=== PATIENT | female | born 1990 | race African-American/Black ===

== ENCOUNTER 2016-11-26 13:01 | Emergency (ER) | payer OTHER ==
[~2016-11-26] VITALS: Ht 149.9 cm; Wt 54.0 kg
[~2016-11-26 13:01] MED LIST: ALTATAB PO
[2016-11-26 13:02] VITALS: BP 128/70; PULSE 89; RESP 14; TEMP 98; O2SAT 100
--- NOTE | 2016-11-26 13:26 | PD ---
HPI Chief Complaint: Related Problem Time Seen by Provider: 13:25 Travel History International Travel<30 days: No Contact w/Intl Traveler<30days: No Traveled to known affect area: No History of Present Illness HPI 26-year-old female presents to the emergency Department with complaint of vaginal spotting for the last 3-4 days. States she thinks she is 4 weeks , but her last menstrual period was September 26. Reports mild abdominal cramping on and off. Denies abnormal vaginal discharge, odor, itch. Denies dysuria. Denies Fever, vomiting. Has no other medical complaints. Allergies to morphine. No other modifying factors or associated signs and symptoms. PFSH Past Medical History ?: LMP: 10/26/16 : 0 Para: 0 Miscarriage: 0 : 0 Past Surgical History Tonsillectomy: Yes Other Surgery: Yes (CYST REMOVED FROM LEFT BREAST) Social History Alcohol Use: Yes (OCCASIONALLY) Tobacco Use: No Substance Use: No Allergies-Medications (Allergen,Severity, Reaction): Coded Allergies: Morphine (Verified Allergy, Severe, HIVES, 12/13/15) HIVES AND THROAT SWELLING Reported Meds & Prescriptions Reported Meds & Active Scripts Active Keflex (Cephalexin) 500 Mg Cap 500 Mg PO Q12H 5 Days Review of Systems Except as stated in HPI: all other systems reviewed are Neg Physical Exam Narrative GENERAL: Well-nourished, well-developed female patient, in no acute distress; afebrile, nontoxic-appearing SKIN: Warm and dry. HEAD: Atraumatic. Normocephalic. EYES: Pupils equal and round. No scleral icterus. No injection or drainage. ENT: Mucosa pink and moist. Airway patent. NECK: Trachea midline. CARDIOVASCULAR: Regular rate and rhythm. No murmur appreciated. RESPIRATORY: No accessory muscle use. Clear to auscultation. Breath sounds equal bilaterally. GASTROINTESTINAL: Abdomen soft, non-tender, nondistended. Hepatic and splenic margins not palpable. Bowel sounds are active 4 quadrants. BACK: No CVA tenderness. MUSCULOSKELETAL: No obvious deformities. No clubbing. No cyanosis. No edema. NEUROLOGICAL: Awake and alert. Oriented 3. No obvious cranial nerve deficits. Motor grossly within normal limits. Normal speech. PSYCHIATRIC: Appropriate mood and affect; insight and judgment normal. Data Data Last Documented VS Vital Signs Date Time Temp Pulse Resp B/P Pulse Ox O2 Delivery O2 Flow Rate FiO2 11/26/16 14:57 18 11/26/16 13:02 98.0 89 128/70 100 Orders Beta Hcg (Quant/Titer) (11/26/16 13:16) Urinalysis - C+S If Indicated (11/26/16 13:16) Ed Urine Pregnancytest Poc (11/26/16 13:16) Ed Poc Ultrasound (11/26/16 13:26) Us Pelvis (Ques Pr/Ect)W Trans (11/26/16 ) Urine Culture (11/26/16 13:23) Labs Laboratory Tests Test 11/26/16 13:23 Urine Color YELLOW Urine Turbidity HAZY Urine pH 6.0 Urine Specific [place] 1.026 Urine Protein 30 mg/dL Urine Glucose (UA) NEG mg/dL Urine Ketones NEG mg/dL Urine Occult Blood MOD Urine Nitrite NEG Urine Bilirubin NEG Urine Urobilinogen LESS THAN 2.0 MG/DL Urine Leukocyte Esterase MOD Urine RBC 25 /hpf Urine WBC 23 /hpf Urine Squamous Epithelial 22 /hpf Cells Urine Bacteria OCC /hpf Urine Mucus MOD /lpf Microscopic Urinalysis Comment CULTURE INDICATED Human Chorionic Gonadotropin, 30039 MIU/ML Quant MDM Medical Decision Making Medical Screen Exam Complete: Yes Emergency Medical Condition: Yes Medical Record Reviewed: Yes Differential Diagnosis Vaginal spotting, threatened miscarriage, miscarriage, ectopic Narrative Course 26-year-old female with vaginal spotting for the last 3-4 days. Last menstrual period September 26. Reports occasional abdominal cramping. Denies other vaginal symptoms. I discussed the patient with Dr. Talamantes, my attending physician, and she recommended hCG, urinalysis, bedside ultrasound. Urine positive. Point of care ultrasound performed by Dr. armenta and she recommended pelvic and transvaginal ultrasound to be ordered. Orders 100. 1430: Urinalysis with signs of infection. HCG 40,848. Patient will be prescribed Keflex for home. Pelvic and transvaginal Ultrasound concludes: Last 24 hours Impressions Pelvis Ultrasound 11/26/16 0000 Signed Impressions: Service Date/Time: Saturday, November 26, 2016 14:36 - CONCLUSION: 1. Suspected missed AB with a gestational sac in the endometrial cavity without cardiac activity. 2. Cystic areas in the left ovary. One of these is likely related to the corpus luteum. The cystic areas include a 3.3 cm simple cyst and a more complex ringlike mass measuring 1.8 cm. An ectopic is less likely given the IUP. The ringlike structure in the left adnexa can be followed with beta-hCG or ultrasound to ensure this resolves. Solo Caba MD Findings of the ultrasound report discussed and Patient provided a copy of the US report. Instructed patient to follow up with immigration lawyer. Keflex prescribed for home. Patient verbalizes understanding and agreement with treatment plan. Patient is medically cleared and stable for discharge. Discussed reasons to return to the emergency department. Instructed patient to follow up with primary care provider. Patient agrees with treatment plan. The patients vital signs are stable and the patient is stable for outpatient follow- up and treatment. Patient discharged home, stable and in no acute distress. Diagnosis Primary Impression: Miscarriage Additional Impression: UTI (urinary tract infection) Qualified Code: N39.0 - Urinary tract infection with hematuria, site unspecified Referrals: [facility] Associate Primary Care Physician Patient Instructions: General Instructions, Miscarriage (ED), Urinary Tract Infection in (ED) Additional Instructions: Take antibiotics as prescribed and complete full course Drink plenty of fluids Maintain good personal hygiene Follow-up with primary care provider Follow-up with immigration lawyer 2-3 days Return to the emergency department immediately with worsening of symptoms Med/Other Pt SpecificInfo: Prescription(s) given Scripts Cephalexin (Keflex)500 Mg Mrj625 Mg PO Q12H 5 Days Ref 0 Prov:Miladys Ruth 11/26/16 Disposition: 01 DISCHARGE HOME Condition: Stable Miladys Ruth Nov 26, 2016 13:26
[2016-11-26 13:46] LABS: BACTERIA, URINE OCC /hpf; BLOOD, URINE MOD (NEG); COMMENT (UR) CULTURE INDICATED; CULTURE IF INDICATED CULTURE INDICATED; GLUCOSE,URINE NEG (NEG); KETONE, URINE NEG (NEG); MUCUS URINE MOD /lpf (OCC); NITRITE,URINE NEG (NEG); SQUAMOUS EPITHELIAL CELL URINE 22 /hpf (0-5); URINE COLOR YELLOW (YELLW/STRAW)
[2016-11-26 14:20] LABS: BETA HCG QUANT 40848 MIU/ML (0-5)
[2016-11-26] MEDS ORDERED: CEPH-460 PO (15:36)
--- NOTE | 2016-11-26 15:46 | RADRPT ---
EXAM DATE/TIME: 11/26/2016 14:36 [facility] COMPARISON: No previous studies available for comparison. INDICATIONS : Vaginal bleeding. LAB(S): Beta-hC MEDICAL HISTORY : . SURGICAL HISTORY : Tonsillectomy. Left breast cyst. ENCOUNTER: Initial ACUITY: 3 days PAIN SCORE: 0/10 LOCATION: Bilateral pelvis MEASUREMENTS: RIGHT OVARY: 4.0 x 2.4 x 1.5 UTERUS: 11.5 x 7.8 x 6.6 cm ENDOMETRIAL STRIPE: 16 mm RIGHT OVARY: 4.0 x 1.5 x 2.4 cm. LEFT OVARY: 4.7 x 5.4 x 3.4 cm FREE FLUID: No CROWN RUMP LENGTH: 0.77 cm = 6 WKS 2 DAYS FHR: not visualized FINDINGS: UTERUS: There is gestational sac in the endometrial cavity measuring 3.8 x 2.2 x 1.4 cm. This corresponds to a gestational age of 7 weeks one day. An embryonic pole is seen measuring 0.77 cm correspond to gesta tional age of 6 weeks 2 days. cardiac activity is not seen. RIGHT OVARY: Ovary contains no mass or significant cystic lesion. LEFT OVARY: There are 2 cystic areas seen in the left ovary. The larger mass is a simple cyst measuring 3.3 cm gr eatest diameter. The smaller mass is seen as a ringlike structure with a peripheral hypoechoic area a nd central cystic area measuring 1.8 x 1.5 x 0.9 cm. MISCELLANEOUS: No free fluid. CONCLUSION: 1. Suspected missed AB with a gestational sac in the endometrial cavity without cardiac activit y. 2. Cystic areas in the left ovary. One of these is likely related to the corpus luteum. The cystic ar eas include a 3.3 cm simple cyst and a more complex ringlike mass measuring 1.8 cm. An ectopic pregna ncy is less likely given the IUP. The ringlike structure in the left adnexa can be followed with beta -hCG or ultrasound to ensure this resolves. Solo Caba MD on November 26, 2016 at 15:38 Board Certified Radiologist. This report was verified electronically.
== END 2016-11-26 16:04 | disposition home or self-care (01) ==
LOC: NEPD 13:01
DX: O03.9 Complete or unspecified spontaneous abortion without complication (principal); O23.41 Unspecified infection of urinary tract in pregnancy, first trimester; Z88.5 Allergy status to narcotic agent; Z79.899 Other long term (current) drug therapy; Z34.91 Encounter for supervision of normal pregnancy, unspecified, first trimester
CPT/HCPCS: 76700; 76817; 81001; 84702; 84703; 87086

== ENCOUNTER 2016-11-29 10:41 | Emergency (ER) | payer OTHER ==
[~2016-11-29] VITALS: Ht 149.9 cm; Wt 53.0 kg
[~2016-11-29 10:41] MED LIST changes: -ALTATAB PO; +CEPH-460 PO
[2016-11-29 10:42] VITALS: BP 135/69; PULSE 100; RESP 16; TEMP 98.2; O2SAT 98
--- NOTE | 2016-11-29 12:20 | PD ---
HPI Chief Complaint: Related Problem Time Seen by Provider: 12:10 Travel History International Travel<30 days: No Contact w/Intl Traveler<30days: No Traveled to known affect area: No History of Present Illness HPI 26-year-old last menstrual period September 26. She presents for reevaluation of vaginal bleeding. For the past 5 days she has been having light vaginal bleeding. She reports that she uses about 1 tampon a day. She was seen here for evaluation of this issue 3 days ago. The ultrasound revealed a suspected missed as well as a complex ringlike structure in the left adnexa. She was encouraged to follow-up with an integrated specialist but she was unable to today because she could not find one that is accepting new patients. She is returning today for repeat beta-hCG. She denies any abdominal pain. Denies passing any obvious products of conception. Denies fevers or chills, flank pain. Unknown Rh type. No other complaints. PFSH Past Medical History ?: : 0 Para: 0 Miscarriage: 0 : 0 Past Surgical History Tonsillectomy: Yes Other Surgery: Yes (CYST REMOVED FROM LEFT BREAST) Social History Alcohol Use: Yes (OCCASIONALLY) Tobacco Use: No Substance Use: No Allergies-Medications (Allergen,Severity, Reaction): Coded Allergies: Morphine (Verified Allergy, Severe, HIVES, 12/13/15) HIVES AND THROAT SWELLING Reported Meds & Prescriptions Reported Meds & Active Scripts Active Keflex (Cephalexin) 500 Mg Cap 500 Mg PO Q12H 5 Days Review of Systems Except as stated in HPI: all other systems reviewed are Neg Physical Exam Narrative GENERAL: Well-developed well-nourished female in no acute distress SKIN: Warm and dry. HEAD: Atraumatic. Normocephalic. EYES: Pupils equal and round. No scleral icterus. No injection or drainage. ENT: No nasal bleeding or discharge. Mucous membranes pink and moist. NECK: Trachea midline. No JVD. CARDIOVASCULAR: Regular rate and rhythm. No murmur appreciated. RESPIRATORY: No accessory muscle use. Clear to auscultation. Breath sounds equal bilaterally. GASTROINTESTINAL: Abdomen soft, non-tender, nondistended. Hepatic and splenic margins not palpable. Pelvic examination performed in the presence of a female nurse: The cervical os is essentially closed. There is a small amount of blood at the level of the cervical os. MUSCULOSKELETAL: No obvious deformities. No clubbing. No cyanosis. No edema. NEUROLOGICAL: Awake and alert. No obvious cranial nerve deficits. Motor grossly within normal limits. Normal speech. PSYCHIATRIC: Appropriate mood and affect; insight and judgment normal. Data Data Last Documented VS Vital Signs Date Time Temp Pulse Resp B/P Pulse Ox O2 Delivery O2 Flow Rate FiO2 11/29/16 10:42 98.2 100 16 135/69 98 Orders Beta Hcg (Quant/Titer) (11/29/16 12:17) Complete Rh (11/29/16 12:17) Us Pelvis (Ques Pr/Ect)W Trans (11/29/16 ) Complete Blood Count With Diff (11/29/16 14:13) Basic Metabolic Panel (Bmp) (11/29/16 14:13) Act Partial Throm Time (Ptt) (11/29/16 14:13) Prothrombin Time / Inr (Pt) (11/29/16 14:13) Labs Laboratory Tests Test 11/29/16 11/29/16 12:25 15:10 Human Chorionic Gonadotropin, 03357 MIU/ML Quant Blood Type O POSITIVE Rho(D) Type POSITIVE White Blood Count 6.8 TH/MM3 Red Blood Count 4.52 MIL/MM3 Hemoglobin 12.7 GM/DL Hematocrit 37.8 % Mean Corpuscular Volume 83.6 FL Mean Corpuscular Hemoglobin 28.2 PG Mean Corpuscular Hemoglobin 33.7 % Concent Red Cell Distribution Width 14.2 % Platelet Count 387 TH/MM3 Mean Platelet Volume 7.7 FL Neutrophils (%) (Auto) 40.4 % Lymphocytes (%) (Auto) 50.9 % Monocytes (%) (Auto) 6.4 % Eosinophils (%) (Auto) 1.7 % Basophils (%) (Auto) 0.6 % Neutrophils # (Auto) 2.7 TH/MM3 Lymphocytes # (Auto) 3.5 TH/MM3 Monocytes # (Auto) 0.4 TH/MM3 Eosinophils # (Auto) 0.1 TH/MM3 Basophils # (Auto) 0.0 TH/MM3 CBC Comment DIFF FINAL Differential Comment Prothrombin Time 10.4 SEC Prothromb Time International 0.9 RATIO Ratio Activated Partial 29.5 SEC Thromboplast Time Sodium Level 137 MEQ/L Potassium Level 3.7 MEQ/L Chloride Level 106 MEQ/L Carbon Dioxide Level 24.3 MEQ/L Anion Gap 7 MEQ/L Blood Urea Nitrogen 8 MG/DL Creatinine 0.58 MG/DL Estimat Glomerular Filtration 151 ML/MIN Rate Random Glucose 78 MG/DL Calcium Level 9.1 MG/DL [facility] Medical Decision Making Medical Screen Exam Complete: Yes Emergency Medical Condition: Yes Medical Record Reviewed: Yes Differential Diagnosis Missed , incomplete , complete , ectopic , intrauterine Narrative Course This is a 26-year-old female whose last menstrual period was September 26. She has been having light vaginal bleeding for the past 5 days. An ultrasound performed 3 days ago revealed a likely missed as well as a complex ringlike structure in the left adnexa. She has had persistent light vaginal bleeding since then which prompted reevaluation. She was unable to establish care with an GRADUATE STUDENT INSTRUCTOR. She is having no abdominal pain in her abdomen is soft and nontender. She has an unknown Rh type and therefore Rh has been ordered. Repeat quantitative beta hCG has been ordered. Because of the complex ringlike structure in left adnexa, repeat ultrasound has been ordered. The patient's ultrasound does continue to reveal any intrauterine demise. The beta-hCG is slightly higher than when she was here 3 days ago, today it is 83,000. I did discuss with the on-call integrated specialist Dr. Lacy as well as the on-call GRADUATE STUDENT INSTRUCTOR doctor Damon who feels that likely this patient does not have a concurrent ectopic . She would be happy to follow-up with the patient next few days in his office if the patient does not pass the products of conception. Discussed with the patient is agreeable with this plan. Diagnosis Primary Impression: Miscarriage Referrals: Jeanette Mccain MD Additional Instructions: As discussed, follow-up with GRADUATE STUDENT INSTRUCTOR doctor Jose in his office in the next 5 days, call to make an appointment. Return for any emergent medical conditions. Med/Other Pt SpecificInfo: No Change to Meds Disposition: 01 DISCHARGE HOME Condition: Stable Stephen Farias Nov 29, 2016 12:20
[2016-11-29 13:27] LABS: BETA HCG QUANT 43645 MIU/ML (0-5)
--- NOTE | 2016-11-29 15:08 | RADRPT ---
EXAM DATE/TIME: 11/29/2016 14:05 [facility] COMPARISON: No previous studies available for comparison. INDICATIONS : Pelvic bleeding. LAB(S): Beta-hC,645 MEDICAL HISTORY : . SURGICAL HISTORY : Tonsillectomy. Left ring finger surgery. Left breast cyst removal. ENCOUNTER: Subsequent ACUITY: 4-6 days PAIN SCORE: 0/10 LOCATION: Bilateral pelvis MEASUREMENTS: UTERUS: 11.4 x 7.6 x 5.3 cm ENDOMETRIAL STRIPE: >20 mm RIGHT OVARY: 4.3 x 2.0 x 1.5 cm LEFT OVARY: 3.7 x 4.1 x 2.3 cm FREE FLUID: No CROWN RUMP LENGTH: 1.2 cm = 7 WKS 3 DAYS FHR: Nonvisualized BPM FINDINGS: UTERUS: An intrauterine gestation is identified with age estimated at 7 weeks, 2-3 days. No cardiac act ivity is identified. There is hypoechoic debris in the endometrial cavity adjacent to the gestation a nd some heterogeneous debris in the endocervical region. The appearance is worrisome for intrauterine demise. RIGHT OVARY: Ovary contains no mass or significant cystic lesion. LEFT OVARY: A. slow less than 4 cm simple appearing cyst is present in the left ovary in addition to a complex 2 cm lesion which is likely corpus luteum. MISCELLANEOUS: No free fluid. CONCLUSION: Scan appearance worrisome for intrauterine demise. Solo Ward MD on November 29, 2016 at 14:58 Board Certified Radiologist. This report was verified electronically.
[2016-11-29 15:33] LABS: AUTOMATED NEUTROPHIL # 2.7 TH/MM3 (1.8-7.7); BASOPHIL % 0.6 % (0.0-2.0); EOSINOPHIL # 0.1 TH/MM3 (0-0.4); EOSINOPHIL % 1.7 % (0.0-4.0); HEMATOCRIT 37.8 % (35.0-46.0); HEMO FLAGS DIFF FINAL; LYMPH % 50.9 % (9.0-44.0); LYMPHOCYTE # 3.5 TH/MM3 (1.0-4.8); MEAN CELL VOLUME 83.6 FL (80.0-100.0); MEAN CORPUSCULAR HEMOGLOBIN 28.2 PG (27.0-34.0); MEAN CORPUSCULAR HGB CONC 33.7 % (32.0-36.0); MONO % 6.4 % (0.0-8.0); NEUT % 40.4 % (16.0-70.0); PLATELET COUNT 387 TH/MM3 (150-450); RED BLOOD COUNT 4.52 MIL/MM3 (4.00-5.30); RED CELL DISTRIBUTION WIDTH 14.2 % (11.6-17.2); WHITE BLOOD COUNT 6.8 TH/MM3 (4.0-11.0)
[2016-11-29 15:44] LABS: APTT (PATIENT) 29.5 SEC (24.3-30.1); INTERNATIONAL NORMALIZED RATIO 0.9 RATIO; PROTHROMBIN TIME - PATIENT 10.4 SEC (9.8-11.6)
[2016-11-29 15:59] LABS: BICARBONATE 24.3 MEQ/L (21.0-32.0); POTASSIUM 3.7 MEQ/L (3.5-5.1)
[2016-11-29 16:20] VITALS: BP 116/71; PULSE 89; RESP 19; O2SAT 100
== END 2016-11-29 17:00 | disposition home or self-care (01) ==
LOC: NEPD 10:41
DX: O03.9 Complete or unspecified spontaneous abortion without complication (principal)
CPT/HCPCS: 76700; 76817; 80048; 84702; 85025; 85610; 85730; 86901; 99284

== ENCOUNTER → 2016-12-02 | Day surgery (SDC) | payer OTHER ==
[~2016-12-02] VITALS: Ht 149.9 cm; Wt 53.9 kg
[~2016-12-02] MED LIST changes: +ACETAMINOPHEN 1000 MG/100 ML VIAL IV ONE; +CHLORHEXIDINE GLUCONATE 2 % 1 PACK (2 CLOTHS) TOPICAL PRN; +DEXAMETHASONE SOD PHOS 4 MG/ML VIAL ONE; +DO NOT ADM ANY ANTICOAGULANT DRUGS PRN; +FAMOTIDINE 20 MG/2 ML VIAL ONE; +INSULIN HUMAN REGULAR 1,000 UNITS/10 ML VIAL SQ PRN; +LACTATED RINGER'S 1000 ML IV PRN; +METOPROLOL TARTRATE 25 MG TAB PO PRN; +MIDAZOLAM HCL 2 MG/2 ML VIAL ONE; +ONDANSETRON HCL 4 MG/2 ML VIAL IV PUSH ONE; +ONDANSETRON HCL 4 MG/2 ML VIAL IV PUSH PRN; +POVIDONE IODINE 5% (ANTISEPSIS KIT) 4 APPLICATIONS EACH NARE PRN; +PROPOFOL 200 MG/20 ML AMP IV ONE; +SODIUM CHLORID 0.9% 500 ML IV PRN; +ceFAZolin 2 GM PREMIX 50 ML IV ONE; +ceFAZolin 2 GM PREMIX 50 ML ONE; +fentaNYL CITRATE 250 MCG/5 ML AMP ONE; +oxyCODONE/ACETAMINOPHEN 10 MG/325 MG TAB PO PRN; +oxyCODONE/ACETAMINOPHEN 5 MG/325 MG TAB PO PRN
[2016-12-02 11:23] VITALS: BP 111/72; PULSE 99; RESP 16; TEMP 99.4; O2SAT 100
[2016-12-02 11:30] LABS: AUTOMATED NEUTROPHIL # 2.6 TH/MM3 (1.8-7.7); BASOPHIL % 0.5 % (0.0-2.0); EOSINOPHIL # 0.1 TH/MM3 (0-0.4); EOSINOPHIL % 1.3 % (0.0-4.0); HEMATOCRIT 35.7 % (35.0-46.0); HEMO FLAGS DIFF FINAL; LYMPH % 51.2 % (9.0-44.0); LYMPHOCYTE # 3.2 TH/MM3 (1.0-4.8); MEAN CORPUSCULAR HEMOGLOBIN 27.9 PG (27.0-34.0); MEAN CORPUSCULAR HGB CONC 33.6 % (32.0-36.0); MONO % 6.3 % (0.0-8.0); NEUT % 40.7 % (16.0-70.0); PLATELET COUNT 345 TH/MM3 (150-450); RED CELL DISTRIBUTION WIDTH 13.9 % (11.6-17.2); WHITE BLOOD COUNT 6.3 TH/MM3 (4.0-11.0)
[2016-12-02 12:10] LABS: BETA HCG QUANT 39766 MIU/ML (0-5)
--- NOTE | 2016-12-02 13:09 | PD.OP ---
Operative Report Date of Surgery: Dec 02, 2016 Preoperative Diagnosis: (1) Missed with demise before 20 completed weeks of gestation Postoperative Diagnosis: (1) Missed with demise before 20 completed weeks of gestation Procedure: D&C with suction Anesthesia: GET Surgeon: Biju Dougherty MD Die Cutter(s): none Operation and Findings: The pt was consented and taken to OR. She was prepped and draped in usual fashion. Her legs were in the candy cane stirrups. A speculum was placed in the vagina. The anterior lip of the cervix was grasped with a tenaculum. The cervix was serially dilated to accomodation the 8 curved suction catheter. Products of conception were revealed. When it was that all POCs had been removed. A sharp curette was used and a good uterine cry was noted. All instruments were removed from the patients vagina. Counts were correct X 2. Biju Dougherty MD Dec 02, 2016 13:09
[2016-12-02 14:52] VITALS: BP 112/78; PULSE 81; RESP 16; TEMP 99.5; O2SAT 100
== END | disposition home or self-care (01) ==
LOC: HSDC 10:40
PROVIDERS: ATTEND Obstetrics & Gynecology
DX: O02.1 Missed abortion (principal)
CPT/HCPCS: 01965; 59820; 84702; 85025; 86850; 86900; 86901; 88305; J0131; J0690; J1100; J2250; J2405; J3010; J7120